=== PATIENT | male | born 1950 | race African-American/Black ===

== ENCOUNTER 2017-11-20 05:31 | Outpatient (CLI) | payer OTHER ==
[2017-11-20 06:04] LABS: HEMATOCRIT 41.7 % (42.0-54.0); HEMOGLOBIN 14.3 g/dL (13.5-17.5); MCHC 34.3 g/dL (31.0-37.0); MCV 87.4 fL (80.0-100.0); MEAN PLATELET VOLUME 9.6 fL (7.4-10.4); RBC 4.77 10x6/uL (4.20-6.10); RDW 12.8 % (11.5-14.5); WBC 4.4 10x3/uL (4.8-10.8)
[2017-11-20 06:19] LABS: CREATININE - SERUM 1.1 mg/dL (0.6-1.3); POTASSIUM - SERUM 4.1 mmol/L (3.5-5.1)
== END 2017-11-20 09:43 ==
LOC: D.OPS 05:31 → EDSTATUS 10:15 → D.OPS 10:15
PROVIDERS: Anesthesiology
DX: R04.2 Hemoptysis (principal); Z53.8 Procedure and treatment not carried out for other reasons; Z01.812 Encounter for preprocedural laboratory examination

== ENCOUNTER 2017-12-14 06:21 | Day surgery (SDC) | payer OTHER ==
[~2017-12-14] VITALS: Ht 177.8 cm; Wt 71.7 kg
--- NOTE | ~2017-12-14 | OP ---
PATIENT NAME: RAEANN CABRERA MEDICAL RECORD: [id number] :48 LOCATION:[facility] ADMISSION DATE: SURGEON: KADEEM OBRIEN MD DATE OF OPERATION: 12/14/2017 PREOPERATIVE DIAGNOSES: 1. Mediastinal adenopathy. 2. Right upper lobe pulmonary nodule, noncalcified. POSTOPERATIVE DIAGNOSES: 1. Mediastinal adenopathy. 2. Right upper lobe pulmonary nodule, noncalcified. PROCEDURE: Bronchoscopy with bronchoalveolar lavage and brushings of the right upper lobe bronchi for cytology. SURGEON: Kadeem Obrien MD ROASTER SUPERVISOR: None. BLOOD LOSS: Minimal. ANESTHESIA: General. COMPLICATIONS: None. My plan for this patient is to perform a bronchoscopy today. We will then await the results of the bronchoscopy before a more invasive intervention is undertaken. I have discussed this with Dr. Reilly at the [facility] facility. I have also reviewed the CT images of the chest with Dr. Dominique. He states he does believe that the right upper lobe nodule is at the lower limits of normal for a CT-guided biopsy, but he does believe that it is approachable through a CT-guided biopsy; however, the patient will be at a significant risk for a pneumothorax. If the CT-guided biopsy is unfruitful, then we would proceed with either a mediastinoscopy and he appears to have a level 4 node on the right, some level 2 nodes as well as a level 7 node that may be reachable through the mediastinoscope. Alternatively, he would be a candidate for a [place] procedure. The risks, possible complications and alternatives to procedure were explained to the patient. He elects to proceed. OPERATIVE COURSE: The patient was conveyed to the operating room electively on 12/14/2017. General anesthesia was induced by the anesthesia staff. A bronchoscopic adapter was applied. I then inserted the well lubricated bronchoscope. First, I examined the left lung and then the right lung. Really no significant bronchitis was present. No significant mucopurulent debris was identified. I then performed combined washings for aerobic, anaerobic, TB and fungus. On the patient's consultation form, it states that he has had TB in the past; OPERATIVE REPORT [id number] RAEANN CABRERA however, the patient denies this. He certainly does have a significant calcified mediastinal adenopathy in addition to the noncalcified adenopathy. I then approached the right upper lobe bronchus. Brushings were obtained for cytology. There was no evidence of intraoperative consultation. The bronchoscope was removed. The patient was extubated. He was conveyed to post-anesthesia care unit where he was in stable condition. A postprocedure chest x-ray revealed no radiographic evidence of complication. TRANSINT:[id number] Voice Confirmation ID: [id number] DOCUMENT ID: [id number] KADEEM OBRIEN MD at 1746 CC: [id number] DICTATION DATE: 12/14/17 1506 DEPUTY CLERK: 12/14/17 1557 [facility] 12/14/17 [id number] [place] [address]
[2017-12-14] MEDS ORDERED: PROTONIX40 MG PO (06:51)
[2017-12-14] MEDS ORDERED: BACLOFEN20 M1 PO (06:51)
[2017-12-14] MEDS ORDERED: FLOMAX0.4 MG PO (06:52)
[2017-12-14] MEDS ORDERED: CARDURA2 MG PO (06:53)
[2017-12-14] MEDS ORDERED: REGLAN5 MG PO (06:55)
[2017-12-14 06:56] LABS: BASOPHILS 0.4 % (0-2); EOSINOPHILS 5.5 % (0-7); HEMATOCRIT 44.9 % (42.0-54.0); HEMOGLOBIN 15.5 g/dL (13.5-17.5); IMMATURE GRANULOCYTES 0.4 % (0-5); MCH 30.6 pg (26.0-34.0); MCHC 34.5 g/dL (31.0-37.0); MCV 88.6 fL (80.0-100.0); MEAN PLATELET VOLUME 9.6 fL (7.4-10.4); MONOCYTES 12.4 % (2-11); NEUTROPHILS 32.3 % (40-80); PLATELET COUNT 186 10x3/uL (130-400); RBC 5.07 10x6/uL (4.20-6.10); RDW 12.9 % (11.5-14.5); WBC 5.6 10x3/uL (4.8-10.8)
[2017-12-14 06:57] VITALS: BP 120/62; Ht 177.8 cm; Wt 71.7 kg
[2017-12-14 07:19] LABS: ANION GAP 10.8 mmol/L (8-16); CALCIUM 9.4 mg/dL (8.5-10.1); CARBON DIOXIDE 30.4 mmol/L (21.0-32.0); CREATININE - SERUM 1.2 mg/dL (0.6-1.3); POTASSIUM - SERUM 4.2 mmol/L (3.5-5.1)
[2017-12-15 19:09] LABS: ACID FAST SMEAR Negative (()); AFB SPECIMEN PROCESSING Concentration (())
[2017-12-19 12:18] LABS: FUNGUS STAIN Final report (())
[2018-01-14 08:41] LABS: FUNGUS MYCOLOGY CULTURE Final report (())
== END 2017-12-14 10:37 | disposition home or self-care (01) ==
LOC: D.OPS 06:21
PROVIDERS: Anesthesiology; Surgery
DX: R59.0 Localized enlarged lymph nodes (principal); R91.1 Solitary pulmonary nodule; Z01.812 Encounter for preprocedural laboratory examination

== ENCOUNTER 2018-02-06 06:16 | Outpatient (CLI) | payer OTHER ==
[~2018-02-06] VITALS: Ht 177.8 cm; Wt 72.7 kg
[~2018-02-06 06:16] MED LIST: BACLOFEN20 M1 PO; CARDURA2 MG PO; FLOMAX0.4 MG PO; PROTONIX40 MG PO; REGLAN5 MG PO
[2018-02-06 06:58] LABS: BASOPHILS 0.2 % (0-2); EOSINOPHILS 4.6 % (0-7); HEMATOCRIT 41.5 % (42.0-54.0); HEMOGLOBIN 14.2 g/dL (13.5-17.5); IMMATURE GRANULOCYTES 0.2 % (0-5); MCH 30.5 pg (26.0-34.0); MCHC 34.2 g/dL (31.0-37.0); MCV 89.1 fL (80.0-100.0); MEAN PLATELET VOLUME 9.3 fL (7.4-10.4); MONOCYTES 15.5 % (2-11); NEUTROPHILS 38.5 % (40-80); PLATELET COUNT 174 10x3/uL (130-400); RBC 4.66 10x6/uL (4.20-6.10); RDW 13.3 % (11.5-14.5); WBC 5.2 10x3/uL (4.8-10.8)
[2018-02-06 07:12] LABS: APTT 32.7 SECONDS (22.8-39.4); INR 1.03 (0.85-1.17); PROTIME 13.1 SECONDS (11.6-15.0)
[2018-02-06 07:28] LABS: ANION GAP 8.7 mmol/L (8-16); CALCIUM 9.1 mg/dL (8.5-10.1); CARBON DIOXIDE 30.8 mmol/L (21.0-32.0); CREATININE - SERUM 1.1 mg/dL (0.6-1.3); POTASSIUM - SERUM 4.5 mmol/L (3.5-5.1)
[2018-02-06 08:20] VITALS: Ht 177.8 cm; Wt 72.7 kg
== END 2018-02-06 14:17 | disposition home or self-care (01) ==
LOC: D.SP 06:16 → D.CT 09:00 → D.SP 09:00
PROVIDERS: General Practice
DX: C34.91 Malignant neoplasm of unspecified part of right bronchus or lung (principal)

== ENCOUNTER 2018-05-01 05:29 | Day surgery (SDC) | payer OTHER ==
[~2018-05-01] VITALS: Ht 177.8 cm; Wt 71.7 kg
--- NOTE | ~2018-05-01 | OP ---
PATIENT NAME: RAEANN CABRERA MEDICAL RECORD: [id number] :48 LOCATION:[facility] ADMISSION DATE: SURGEON: QUYEN OBRIEN MD DATE OF OPERATION: 05/01/2018 PREOPERATIVE DIAGNOSIS: Suspicious mediastinal adenopathy. POSTOPERATIVE DIAGNOSIS: Suspicious mediastinal adenopathy with frozen section diagnosis of granulomatous disease likely sarcoidosis. PROCEDURE: Mediastinoscopy with lymph node biopsies. SURGEON: Quyen Obrien MD MEDICAL OFFICE RECEPTIONIST ASSISTANT: None. BLOOD LOSS: Minimal. ANESTHESIA: General. COMPLICATIONS: None. The risks, possible complications, and alternatives to procedure were explained to the patient. He elects to proceed. The discussion specifically included, but was not limited to, bleeding requiring emergency reoperation, infection, possible need for a mini thoracotomy, a [place] procedure, or a median sternotomy. OPERATIVE COURSE: The patient was conveyed to the operating room electively on 05/01/2018. General anesthesia was induced by the anesthesia staff. The neck was extended. A small transverse incision was accomplished in the suprasternal notch. Sharp dissection was carried down to the level of the strap muscles, which were . I dissected down to the trachea. With my moistened gloved finger, I created a pretracheal tunnel. The mediastinoscope was then inserted in the pretracheal tunnel. I was able to perform some blunt dissection with the suction cannula. I identified the superior vena cava and also, the aorta. I was able to get down to almost the bifurcation of the trachea. There was some level 2 tissue, which was biopsied with the mediastinoscopy biopsy forceps. This on frozen section was just adipose tissue. I was then able to dissect and get some level 4 tissue on the left and level 4 tissue on the right with the mediastinal biopsy graspers. There was virtually no bleeding. The pathology on some of the mediastinal tissue revealed granulomatous disease likely sarcoidosis. Cultures are pending. A hemostatic agent such as Fibrillar was impacted into the mediastinal space. The strap muscles were closed in the midline with interrupted 3-0 Vicryls. The subdermis was approximated with interrupted 3-0 Vicryls. The skin was approximated with a running intracuticular 3-0 Vicryl. Dermabond was then applied. The patient was then extubated and conveyed to post-anesthesia care unit where he was in stable condition. OPERATIVE REPORT [id number] RAEANN CABRERA I have ordered an angiotensin converting enzyme level. We will be waiting on the final pathology results. He can be dismissed back to the halfway. He should not require much analgesia as the incision is small. I can see him on rounds out at the halfway. TRANSINT:[id number] Voice Confirmation ID: [id number] DOCUMENT ID: [id number] QUYEN OBRIEN MD at 0039 CC: TAMIR KWONG MD and NO SPENCER [id number] DICTATION DATE: 05/01/18 1046 PATIENT COORDINATOR FRONT DESK: 05/01/18 1307 [facility] [place] 05/01/18 [facility] [address] [place] [address]
[2018-05-01] MEDS ORDERED: OMEPRAZOLE20 M1 (06:14)
[2018-05-01] MEDS ORDERED: BAYER CHEWABLE81 MG PO (06:15)
[2018-05-01] MEDS ORDERED: BENTYL 20 MG TA20 MG PO (06:16)
[2018-05-01] MEDS ORDERED: FLOMAX0.4 MG PO (06:17)
[2018-05-01 06:44] VITALS: BP 148/88; Ht 177.8 cm; Wt 71.7 kg
[2018-05-01 07:13] LABS: HEMATOCRIT 41.7 % (42.0-54.0); HEMOGLOBIN 14.3 g/dL (13.5-17.5); MCH 30.6 pg (26.0-34.0); MCHC 34.3 g/dL (31.0-37.0); MCV 89.1 fL (80.0-100.0); MEAN PLATELET VOLUME 9.5 fL (7.4-10.4); RBC 4.68 10x6/uL (4.20-6.10); RDW 13.1 % (11.5-14.5); WBC 4.3 10x3/uL (4.8-10.8)
== END 2018-05-01 15:10 | disposition home or self-care (01) ==
LOC: D.OPS 05:29
PROVIDERS: Anesthesiology
DX: I88.8 Other nonspecific lymphadenitis (principal); Z01.812 Encounter for preprocedural laboratory examination